=== PATIENT | male | born 1985 | race Caucasian/White ===

== ENCOUNTER 2020-06-02 17:44 | Emergency (ER) | payer OTHER, MEDICAID, SELFPAY ==
[2020-06-02 17:55] VITALS: BP 141/104; PULSE 102; RESP 16; TEMP 36.7; O2SAT 99; BMI 27.1
[2020-06-02] MEDS: TET,DIPH,PERTUSS(ACELL),VAC/PF 0.5 ML SYRINGE IM (18:21)
[2020-06-02] MEDS: PROPARACAINE 0.5% OPHTH SOL 1 DROPS EYE-RIGHT (18:21)
[2020-06-02] MEDS: FLUORESCEIN 1 MG STRIP EYE-BOTH (18:22)
--- NOTE | 2020-06-02 19:00 | ED.GENADULT ---
HPI - General Adult General Chief complaint: Eye Problems Stated complaint: something in eye.. thinks it is glass Time Seen by Provider: 06/02/20 18:18 Source: patient Mode of arrival: Ambulatory Limitations: no limitations History of Present Illness HPI narrative: Patient is a 34-year-old male with irritation of foreign body sensation in his right eye. He states he is supposed to wear glasses but does not. Does not were contacts. Has never had any surgery on his eyes in the past. Yesterday a glass vase broke shortly afterwards started having irritation in his right eye. He did wash out his eye at home. He thought that things had improved until today when he was working with some paint thinner when the fumes got into his right eye he had quite a bit of irritation. Another individual looked in his eye noticed something white. He is concerned that potentially he has a piece of glass in his eye. Related Data Home Medications Medication Instructions Recorded Confirmed lisinopril 20 mg PO QDAY #0 07/04/16 omeprazole 20 mg PO QDAY #0 07/04/16 Previous Rx's Medication Instructions Recorded albuterol sulfate [Ventolin HFA] 0 puff INH Q4HP PRN #1 ea 07/04/16 lisinopril 20 mg PO QDAY #30 tab 07/04/16 erythromycin 0.5 inch EYE-RIGHT TID 2 Days #3.5 06/02/20 g Allergies Allergy/AdvReac Type Severity Reaction Status Date / Time erythromycin base Allergy Unknown Verified 06/02/20 17:55 [From PEDIAZOLE] sulfisoxazole Allergy Unknown Verified 06/02/20 17:55 [From PEDIAZOLE] Review of Systems Constitutional Constitutional: Denies fatigue, Denies fever(s) and Denies headache(s) Eyes Eyes: Reports blurry vision, Denies change in vision, Reports irritation and Reports eye pain ENT Ears, Nose, Mouth, and Throat: Denies headache(s) and Denies sore throat Cardiovascular Cardiovascular: Denies chest pain and Denies dyspnea Respiratory Respiratory: Denies dyspnea Gastrointestinal Gastrointestinal: Denies abdominal pain Genitourinary Genitourinary: Denies dysuria Genitourinary: Denies dysuria Musculoskeletal Musculoskeletal: Denies arthralgias Integumentary/Breasts Skin/Breast: Denies lesions and Denies rash Neurologic Neurologic: Denies behavioral changes and Denies headache(s) Psychiatric Psychiatric: Denies behavioral changes Endocrine Endocrine: Denies fatigue Hematologic/Lymphatic On Anticoagulants: No Allergic/Immunologic Allergic/Immunologic: Denies urticaria Patient History Medical History Viral upper respiratory infection Social History Smoking Status: Current every day smoker Smoking Status: Current every day smoker alcohol intake frequency: holidays/special occasions only Substance Use Type: does not use Exam Initial Vital Signs Initial Vital Signs: Vital Signs Temperature 98.0 F 06/02/20 17:55 Pulse Rate 102 H 06/02/20 17:55 Respiratory Rate 16 06/02/20 17:55 Blood Pressure 141/104 H 06/02/20 17:55 Pulse Oximetry 99 06/02/20 17:55 Const General: cooperative and comfortable Limitations: mental status not altered HENMT Head: normal to inspection and normocephalic Eyes General: appearance normal, both eyes and all related structures Periorbital: periorbital findings normal Conjunctivae: conjunctivae normal Sclera: sclerae normal Cornea: corneas abnormal on the right fluorescein used and foreign body (White substance) and fluorescein used Pupils: PERRL EOM: EOM intact bilaterally Direct ophthalmoscopy: normal light reflex Resp Effort & Inspection: normal respiratory effort Cardio Rate: regular rate Skin Lesions: no lesions Rashes: no rashes Neuro General: patient alert and patient awake Cognition: normal cognition Speech: speech normal Extrem General: normal to inspection and capillary refill normal Psych Appearance: grossly normal and well kempt Procedures Foreign Body EYE Time Out performed: Yes Location: eye (R) Topical anesthetic used: proparacaine Foreign body: other (White material) Evidence of corneal penetration: No Technique: needle Procedure performed under: slit-lamp Post-procedure medication: ophthalmic antibiotic Patient tolerated procedure: well and no complications Complications: other (None) Course Orders Ordered: Discontinued Medications Diphtheria/Tetanus/Acell Pertussis (Tet,Diph,Pertuss(Acell),Vac/Pf 0.5 Ml Syringe) 0.5 ml IM .ONCE ONE Stop: 06/02/20 18:03 Last Admin: 06/02/20 18:21 Dose: 0.5 ml Documented by: BTONER Erythromycin (Erythromycin Ophth 1 Gm Oint) 1 applic EYE-RIGHT NOW ONE Stop: 06/02/20 19:01 Last Admin: 06/02/20 19:11 Dose: 1 applic Documented by: JAKEONER Fluorescein Sodium (Fluorescein 1 Mg Strip) 1 mg EYE-BOTH NOW ONE Stop: 06/02/20 18:02 Last Admin: 06/02/20 18:22 Dose: 1 mg Documented by: BTONER Proparacaine HCl (Proparacaine 0.5% Ophth Cristel) 1 drops EYE-RIGHT NOW ONE Stop: 06/02/20 18:02 Last Admin: 06/02/20 18:21 Dose: 1 drop Documented by: BTONER Vital Signs Vital signs: Vital Signs - 8 hr 06/02/20 17:55 06/02/20 19:17 Temperature 98.0 F Pulse Rate 102 H 70 Respiratory Rate 16 18 Blood Pressure 141/104 H 140/89 Pulse Oximetry 99 98 Medical Decision Making MDM Narrative Medical decision making narrative: Patient did have a small piece of a white material located at the 12 o'clock position in the central visual axis of his right eye. Attempted to remove it with a cotton tip applicator but was unsuccessful. A slit lamp was then used and was easily removed with a needle. It did appear to be completely removed. Unsure what the exact substance was but it did not appear to be metal Sullivan last. There is no signs of any corneal penetration. There were no other foreign bodies noted. He reported improvement of symptoms after this was removed. Will place him on antibiotic ointment. He was given return precautions and follow-up instructions. He expressed understanding and agreement. Discharge Plan Departure Patient Disposition: Home Clinical Impression: Eye foreign body Instructions: DI for Foreign Body in the Eye Activity Restrictions/Additional Instructions: Use the antibiotic ointment 1 more time before you go to bed tonight and then 3 times a day for the next 2 days. Contact your primary provider for a follow-up. Return to the emergency department for any new or worsening symptoms Prescriptions: New erythromycin 5 mg/gram (0.5 %) ointment 0.5 inch EYE-RIGHT TID 2 Days Qty: 3.5 RF: 0 No Action lisinopril 20 MG tablet 20 mg PO QDAY Qty: 0 RF: 0 omeprazole 20 MG capsule,delayed release(DR/EC) 20 mg PO QDAY Qty: 0 RF: 0 lisinopril 20 MG tablet 20 mg PO QDAY Qty: 30 RF: 0 albuterol sulfate [Ventolin HFA] 90 MCG/PUFF HFA aerosol inhaler 0 puff INH Q4HP PRNQty: 1 RF: 0
[2020-06-02] MEDS: ERYTHROMYCIN OPHTH 1 GM OINT 1 APPLIC EYE-RIGHT (19:11)
[2020-06-02 19:17] VITALS: BP 140/89; PULSE 70; RESP 18; O2SAT 98
--- NOTE | 2020-06-02 19:20 | PC.NURSE ---
pt states he is supposed to wear glasses but broke them.
== END 2020-06-02 19:16 | disposition home or self-care (01) ==
PROVIDERS: Emergency Provider Emergency Medicine
DX: T15.91XA Foreign body on external eye, part unspecified, right eye, initial encounter (principal); Z23 Encounter for immunization
CPT/HCPCS: 65205; 90471; 99283; 90715